=== PATIENT | female | born 1975 | race Caucasian/White ===

== ENCOUNTER 2017-02-06 17:28 | Emergency (ER) | payer BC ==
[~2017-02-06] VITALS: Ht 172.7 cm; Wt 74.6 kg
[~2017-02-06 17:28] MED LIST: AMX875 PO
[2017-02-06 17:34] VITALS: TEMP 37; Ht 172.7 cm; Wt 74.6 kg
[2017-02-06] MEDS ORDERED: DiphenhydrAMINE HCL 50 MG/ML VIAL IV STA (17:49)
[2017-02-06] MEDS ORDERED: PROCHLORPERAZINE 5 MG/ML 2 ML VIAL IV STA (17:49)
[2017-02-06] MEDS ORDERED: SODIUM CHLORIDE 0.9% 1000ML 1,000 ML IV STA (17:49)
[2017-02-06] MEDS ORDERED: ACETAMINOPHEN 500 MG TAB PO STA (17:49)
[2017-02-06] MEDS ORDERED: KETOROLAC TROMETHAMINE 30 MG/ML VIAL IV STA (17:49)
[2017-02-06 18:14] LABS: BASO % 0.5 %; BASO ABS # 0.02 K/uL (0-0.2); COMPLETE YES; EOS % 0.5 %; HEMATOCRIT 41.1 % (37-47); LYMPH % 15.6 %; LYMPH ABS # 0.61 K/uL (1.2-3.4); MEAN CELL VOLUME 90.1 fL (80-100); MEAN CORPUSCULAR HEMOGLOBIN 30.3 pg (25-34); MEAN CORPUSCULAR HGB CONC 33.6 g/dl (32-36); MEAN PLATELET VOLUME 10.4 fL (7.4-10.4); MONO % 15.8 %; NEUT % 67.6 %; PLATELET COUNT 164 K/uL (130-400); RED BLOOD COUNT 4.56 M/uL (4.2-5.4); WHITE BLOOD COUNT 3.92 K/uL (4.8-10.8)
[2017-02-06 18:33] LABS: ALT/SGPT 41 U/L (12-78); BLOOD UREA NITROGEN 8 mg/dl (7-18); CALCIUM 8.9 mg/dl (8.5-10.1); CARBON DIOXIDE 28 mmol/L (21-32); CHLORIDE 104 mmol/L (98-107); GLUCOSE 119 mg/dl (70-99); POTASSIUM 3.8 mmol/L (3.5-5.1); SODIUM 139 mmol/L (136-145)
[2017-02-06 18:36] LABS: ALKALINE PHOSPHATASE 71 U/L (45-117); AST/SGOT 30 U/L (15-37)
[2017-02-06 19:05] VITALS: BP 114/78; PULSE 68; O2SAT 100
[2017-02-06 19:07] LABS: LYME DISEASE AB IGG NEG (NEG)
[2017-02-06] MEDS ORDERED: IBUP-103 PO (19:07)
[2017-02-06 19:08] LABS: LYME DISEASE AB IGM EQUIVOCAL (NEG)
[2017-02-06] MEDS ORDERED: DOXYCYCLINE HYCLATE 100 MG CAP PO ONE (19:15)
[2017-02-06] MEDS ORDERED: DOXY100C2 PO (19:16)
--- NOTE | 2017-02-06 20:15 | EMERGENCY ROOM VISIT NOTE ---
History Report prepared by Srini: Mary Nava Under the Supervision of: Dr. Matthew Dawson M.D. First contact with patient: 17:39 Chief Complaint: HEADACHE Stated Complaint: HEADACHE FOR 3 DAYS AND FATIGUE History of Present Illness The patient is a 41 year old female who presents to the Emergency Room with complaints of a headache beginning 3 nights ago. She states that the pain is focused around her eyes and temples, and describes the pain as being sharp. The patient reports that she took Advil today at 6 am and 3:30 pm and that is takes away the sharpness, but not the headache. Lying down exacerbates the headache, and standing up mitigates it minimally. The patient states that she has been febrile. She states she took her temperature at one point and it was 102 but then 10 minutes later was normal. She had not taken anything for her fever in that time period. She also reports having the chills, and that she feels weak and tired. The patient denies vomiting, urinary symptoms, and unilateral numbness. She also states that she has not had a rash or tick bites. The patient has no history of migraines. She reports that she started a sugar detox diet 3 weeks ago. She denies any unintentional weight loss. Source of History: patient Onset: 3 nights ago Position: head Quality: sharp Timing: waxes/wanes Modifying Factors (Relieving): other (standing) Associated Symptoms: + fevers, + chills, + fatigue, No vomiting, No urinary symptoms, No numbness (unilateral) Review of Systems See HPI for pertinent positives & negatives. A total of 10 systems reviewed and were otherwise negative. Past Medical & Surgical Medical Problems: (1) No significant past medical history Family History Hypertension Social History Smoking Status: Never Smoker Alcohol Use: occasionally Marital Status: Current/Historical Medications Scheduled Doxycycline Hyclate (Vibramycin), 100 MG PO BID Scheduled PRN Ibuprofen Tab (Advil), 200-600 MG PO Q4H PRN for Headache or Pain Allergies Coded Allergies: No Known Allergies (Verified , 02/06/17) Physical Exam Vital Signs Date Time Temp Pulse Resp B/P (MAP) Pulse Ox O2 Delivery O2 Flow Rate FiO2 02/06/17 19:05 68 20 114/78 100 Room Air 02/06/17 17:34 37.0 107 18 122/85 95 Room Air Physical Exam Constitutional: Vital signs reviewed. Eyes: Pupils are equal round reactive to light. Conjunctiva are noninjected. ENT: Pharynx is clear without erythema or exudate. Mucous membranes are moist. Neck supple without meningeal signs. Respiratory: Clear to auscultation bilaterally. Breath sounds are equal bilaterally. Cardiovascular: Regular rate and rhythm. No rubs or gallops. GI: Soft, nondistended and nontender. Bowel sounds are present. Musculoskeletal: No peripheral edema. No lower extremity tenderness. Integumentary: No cyanosis. Neurological: The patient is awake and alert. Cranial nerves II-XII are intact. Motor is 5 out of 5 all extremities. Sensation is intact to light touch all extremities. Normal speech. No pronator drift. No limb ataxia. Negative Kernig and Brudzinski's sign. Psychiatric: Normal affect. Medical Decision & Procedures Laboratory Results 02/06/17 18:05 Red Blood Count 4.56, Mean Corpuscular Volume 90.1, Mean Corpuscular Hemoglobin 30.3, Mean Corpuscular Hemoglobin Concent 33.6, Mean Platelet Volume 10.4, Neutrophils (%) (Auto) 67.6, Lymphocytes (%) (Auto) 15.6, Monocytes (%) (Auto) 15.8, Eosinophils (%) (Auto) 0.5, Basophils (%) (Auto) 0.5, Neutrophils # (Auto ) 2.65, Lymphocytes # (Auto) 0.61, Monocytes # (Auto) 0.62, Eosinophils # (Auto ) 0.02, Basophils # (Auto) 0.02 02/06/17 18:05 Test 02/06/17 18:05 White Blood Count 3.92 K/uL (4.8-10.8) Red Blood Count 4.56 M/uL (4.2-5.4) Hemoglobin 13.8 g/dL (12.0-16.0) Hematocrit 41.1 % (37-47) Mean Corpuscular Volume 90.1 fL (80-100) Mean Corpuscular Hemoglobin 30.3 pg (25-34) Mean Corpuscular Hemoglobin Concent 33.6 g/dl (32-36) Platelet Count 164 K/uL (130-400) Mean Platelet Volume 10.4 fL (7.4-10.4) Neutrophils (%) (Auto) 67.6 % Lymphocytes (%) (Auto) 15.6 % Monocytes (%) (Auto) 15.8 % Eosinophils (%) (Auto) 0.5 % Basophils (%) (Auto) 0.5 % Neutrophils # (Auto) 2.65 K/uL (1.4-6.5) Lymphocytes # (Auto) 0.61 K/uL (1.2-3.4) Monocytes # (Auto) 0.62 K/uL (0.11-0.59) Eosinophils # (Auto) 0.02 K/uL (0-0.5) Basophils # (Auto) 0.02 K/uL (0-0.2) RDW Standard Deviation 41.6 fL (36.4-46.3) RDW Coefficient of Variation 12.6 % (11.5-14.5) Immature Granulocyte % (Auto) 0.0 % Immature Granulocyte # (Auto) 0.00 K/uL (0.00-0.02) Anion Gap 7.0 mmol/L (3-11) Est Creatinine Clear Calc Drug Dose 73.2 ml/min Estimated GFR () 79.9 Estimated GFR (Non- 69.0 BUN/Creatinine Ratio 8.0 (10-20) Calcium Level 8.9 mg/dl (8.5-10.1) Total Bilirubin 0.4 mg/dl (0.2-1) Direct Bilirubin < 0.1 mg/dl (0-0.2) Aspartate Amino Transf (AST/SGOT) 30 U/L (15-37) Alanine Aminotransferase (ALT/SGPT) 41 U/L (12-78) Alkaline Phosphatase 71 U/L (45-117) Total Protein 7.2 gm/dl (6.4-8.2) Albumin 3.7 gm/dl (3.4-5.0) Lyme Disease IgG Antibody NEG (NEG) Laboratory results as reviewed by me. Medications Administered Medications (Trade) Dose Ordered Sig/Alvarez Route Start Time Stop Time Status Last Admin Dose Admin Sodium Chloride 1,000 ml @ 999 mls/hr Q1H1M STAT IV 02/06/17 17:49 02/06/17 18:49 DC 02/06/17 18:11 999 MLS/HR Ketorolac Tromethamine (Toradol Inj) 10 mg NOW STAT IV 02/06/17 17:49 02/06/17 17:51 DC 02/06/17 18:12 10 MG Acetaminophen (Tylenol Tab) 1,000 mg NOW STAT PO 02/06/17 17:49 02/06/17 17:51 DC 02/06/17 18:12 1,000 MG Doxycycline Hyclate (Vibramycin Cap) 100 mg ONE ONCE PO 02/06/17 19:15 02/06/17 19:16 DC 02/06/17 19:37 100 MG ED Course 1744: The patient was evaluated in room B12. A complete history and physical exam was performed. 1748: Ordered Tylenol Tab 1,000 mg PO, Toradol Inj 10 mg IV, Benadryl Inj 50 mg IV, Compazine Inj 10 mg, Sodium Chloride 1,000 ml @ 999 mls/hr IV. 1848: The patient refused the Compazine and Benadryl, but took the Toradol. The patient states that she feels better. 1914: Ordered Vibramycin Cap 100 mg PO. 1915: I talked with the patient about her results and she agrees to the treatment plan. 1917: Upon reevaluation, the patient appeared to have improvement of her symptoms. I discussed tonight's findings with her. She verbalized agreement of the treatment plan. She was discharged home. Medical Decision This is a 41-year-old female who presents with a headache and malaise. Differential diagnosis includes migraine headache, tension headache, intracranial hemorrhage, intracranial mass, lung disease. I did perform a limited focused review of portions of the patient's old chart on the electronic medical record. The patient had a CT of her head in 2010 that was found to be unremarkable. Blood Pressure Screening: Patient was found to have a slightly elevated blood pressure due to circumstances. I do not believe that the patient requires hypertension monitoring. Medication Reconciliation: I attest that I have personally reviewed the patient' s current medication list. I did evaluate the patient as noted above. She is presenting with headache and generalized malaise. She has no meningeal signs. She has no focal neurologic deficits. She did have a questionable fever. IV access was established. I did treat her with normal saline IV and Toradol IV. She was also given Tylenol. I did order and review the patient's blood work as noted in the electronic medical record. Her white blood cell count is slightly low. This is of uncertain significance. Her Lyme IgM titer was equivocal. I did reassess the patient. She states she feels much better. I did discuss the test results with the patient. Given her clinical symptoms I did recommend treatment with doxycycline rather than waiting for the Western blot test. She was in agreement. The patient was given doxycycline here and discharged with a 21 and a prescription for doxycycline. She was advised follow closely with her doctor. Impression Primary Impression: Acute headache Additional Impression: Positive Lyme disease serology Scribe Attestation The scribe's documentation has been prepared under my direct and personally reviewed by me in its entirety. I confirm that the note above accurately reflects all work, treatment, procedures, and medical decision making performed by me. Departure Information Dispostion Home / Self-Care Prescriptions Doxycycline Hyclate (VIBRAMYCIN) 100 Mg Cap 100 MG PO BID for 21 Days, #42 CAP Prov: Matthew Dawson M.D. 02/06/17 Referrals Xiao Peña M.D. (PCP) Forms HOME CARE DOCUMENTATION FORM, IMPORTANT VISIT INFORMATION Patient Instructions ED Lyme Disease, Headache Pain, My [facility] Additional Instructions You have been examined and treated today on an emergency basis only. This is not a substitute for, or an effort to provide, complete comprehensive medical care. It is impossible to recognize and treat all injuries or illnesses in a single emergency department visit. It is therefore important that you follow up closely with your physician. Call as soon as possible for an appointment. Return for worsening symptoms or if you develop vomiting, chest pain, shortness of breath, palpitations or any other concerning symptoms. Problem Qualifiers Primary Impression: Acute headache Headache type: unspecified Intractability: not intractable Qualified Codes : R51 - Headache
[2017-02-09 22:59] LABS: 18KDIGG BAND NONREACTIVE (NONREACTIVE); 23KDIGG BAND NONREACTIVE (NONREACTIVE); 23KDIGM BAND REACTIVE (NONREACTIVE); 28KDIGG BAND NONREACTIVE (NONREACTIVE); 30KDIGG BAND NONREACTIVE (NONREACTIVE); 39KDIGG BAND NONREACTIVE (NONREACTIVE); 39KDIGM BAND NONREACTIVE (NONREACTIVE); 41KDIGG BAND NONREACTIVE (NONREACTIVE); 41KDIGM BAND NONREACTIVE (NONREACTIVE); 45KDIGG BAND NONREACTIVE (NONREACTIVE); 58KDIGG BAND NONREACTIVE (NONREACTIVE); 66KDIGG BAND NONREACTIVE (NONREACTIVE); 93KDIGG BAND NONREACTIVE (NONREACTIVE)
== END 2017-02-06 19:44 | disposition home or self-care (01) ==
LOC: C.EDB 17:29
DX: R51 Headache (principal); R76.8 Other specified abnormal immunological findings in serum; Z82.49 Family history of ischemic heart disease and other diseases of the circulatory system